=== PATIENT | male | born 1985 | race Caucasian/White ===

== ENCOUNTER 2018-07-06 15:01 | Emergency (ER) | payer SELFPAY ==
[~2018-07-06] VITALS: Ht 170.2 cm; Wt 86.0 kg
[2018-07-06 15:02] VITALS: BP 130/81
== END 2018-07-06 16:29 | disposition home or self-care (01) ==
LOC: ED 16:10
DX: S83.422A Sprain of lateral collateral ligament of left knee, initial encounter (principal); S43.422A Sprain of left rotator cuff capsule, initial encounter; W01.0XXA Fall on same level from slipping, tripping and stumbling without subsequent striking against object, initial encounter; Y93.89 Activity, other specified; Y92.89 Other specified places as the place of occurrence of the external cause; Y99.8 Other external cause status
CPT/HCPCS: 29505; 99284

== ENCOUNTER 2018-07-07 10:40 | Emergency (ER) | payer SELFPAY ==
[~2018-07-07] VITALS: Ht 172.7 cm; Wt 87.6 kg
[2018-07-07] MEDS ORDERED: HYDROcodone/APAP 5/325 TABLET ONE (11:20)
[2018-07-07] MEDS ORDERED: HYDROcodone/APAP 5/325 TABLET PO ONE (11:30)
[2018-07-07 12:00] VITALS: BP 125/70
== END 2018-07-07 12:12 | disposition home or self-care (01) ==
LOC: ED 12:10
DX: S83.412A Sprain of medial collateral ligament of left knee, initial encounter (principal); S94.21XA Injury of deep peroneal nerve at ankle and foot level, right leg, initial encounter; W18.39XA Other fall on same level, initial encounter; Y93.89 Activity, other specified; Y92.89 Other specified places as the place of occurrence of the external cause; Y99.8 Other external cause status
CPT/HCPCS: 99282; 99283